=== PATIENT | male | born 1960 | race Caucasian/White ===

== ENCOUNTER → 2023-12-18 | Outpatient (CLI) | payer BC ==
[~2023-12-18] VITALS: Ht 185.4 cm; Wt 123.8 kg
[2023-12-18] VITALS (11 sets, daily range): BP systolic 90–162; BP diastolic 61–119; PULSE 81–98; TEMP 98.1
[~2023-12-18] MED LIST: APRESOLINE 10MG10 MG PO; COLCRYS0.6 MG PO; ELIQUIS 5MG PO; RT ADVAIR 228 DISKUS IH; SINGULAIR 110 MG/TAB PO; ZYLOPRIM 100MG100 MG PO; ZYLOPRIM 300MG300 MG PO
[2023-12-18 09:52] LABS: HEMATOCRIT 49.5 % (42.0-52.0); HEMOGLOBIN 17.9 g/dl (13.5-18.0); MEAN CELL VOLUME 88 fl (80.0-100.0); MEAN CORPUSCULAR HEMOGLOBIN 32 pg (27-31); MEAN CORPUSCULAR HGB CONC 36 g/dl (33.0-37.0); MEAN PLATELET VOLUME 10.3 fl (7.4-10.4); PLATELET COUNT 283 K/mm3 (130-400); RED BLOOD COUNT 5.62 M/mm3 (4.20-5.60); REDCELL DISTRIBUTION WIDTH-CV 13.7 % (11.5-14.5)
--- NOTE | 2023-12-18 10:00 | NUR ---
LAB STAFF IN TO DRAW SERUM FOR SPECIAL LABS.
[2023-12-18 10:23] LABS: EOSINOPHIL 4 % (0-4); LYMPHOCYTE 21 % (20.0-51.0); NEUTROPHILS 63 % (42.0-75.2); PLATELET ESTIMATE NORMAL (NORMAL)
[2023-12-20 11:09] LABS: PATHOLOGY DIFF REVIEW OK +
== END ==
LOC: COL.RAD 07:54
PROVIDERS: Internal Medicine
DX: D75.1 Secondary polycythemia (principal)
CPT/HCPCS: C1830